=== PATIENT | male | born 1960 | race Caucasian/White ===

== ENCOUNTER 2018-11-18 18:15 | Emergency (ER) | payer OTHER ==
[~2018-11-18] VITALS: Ht 177.8 cm; Wt 95.3 kg
[2018-11-18 18:24] VITALS: BP 188/111
[2018-11-18] MEDS ORDERED: ACETAMINOPHEN EXTRA STRENGTH 500 MG TAB PO ONE (19:50)
[2018-11-18] MEDS ORDERED: hydrALAZINE 20 MG/ML VIAL IVP ONE ×2 (20:10→21:55)
[2018-11-18] MEDS ORDERED: ENALAPRILAT 2.5 MG/2 ML VIAL IVP ONE (20:10)
[2018-11-18 23:09] VITALS: BP 135/60
== END 2018-11-18 23:07 | disposition home or self-care (01) ==
LOC: MED 18:15
DX: S05.01XA Injury of conjunctiva and corneal abrasion without foreign body, right eye, initial encounter (principal); I10 Essential (primary) hypertension; E11.9 Type 2 diabetes mellitus without complications; W22.8XXA Striking against or struck by other objects, initial encounter; Y93.89 Activity, other specified; Y92.89 Other specified places as the place of occurrence of the external cause; Y99.8 Other external cause status
CPT/HCPCS: 70450; 70480; 96374; 96375; 99284; J0360; J3490; 96376

== ENCOUNTER 2019-03-01 12:12 | Emergency (ER) | payer SELFPAY ==
[~2019-03-01] VITALS: Ht 175.3 cm; Wt 87.7 kg
[2019-03-01 12:33] VITALS: BP 178/108
--- NOTE | 2019-03-01 12:38 | NUR ---
AMBULATES BACK TO THE LOBBY
--- NOTE | 2019-03-01 13:13 | NUR ---
BIB AND DAUGHTER C/O RT EYE PAIN, BLURRY VISSION WHEN WAKING UP THIS MORNING. RT RED SCLERA NOTED. WAS SEEN AND TX ON 11/18/18 FOR EYE INJURY AT WORK WHEN A BOX OF APPLE HIT HIS RT EYE.PT AWAKE, ALERT, AMBULATORY WITH STEADY GAIT. INTACT EOM,REDNESS OF SCLERA.NO DISCHARGE. DID NOT FOLLOW UP D/T NO INSURANCE HX: HTN, DM, HIGH CHOLESTEROL
[2019-03-01 14:36] VITALS: BP 160/99
--- NOTE | 2019-03-01 14:38 | NUR ---
Patient discharged with v/s stable. Written and verbal after care instructions given and explained. Patient verbalized understanding. Ambulatory with steady gait. All questions addressed prior to discharge. Advised to follow up with PMD.
== END 2019-03-01 14:38 | disposition home or self-care (01) ==
LOC: MED 12:12
DX: H11.31 Conjunctival hemorrhage, right eye (principal); I10 Essential (primary) hypertension; E11.9 Type 2 diabetes mellitus without complications; E78.00 Pure hypercholesterolemia, unspecified
CPT/HCPCS: 99283; 99285

== ENCOUNTER 2022-07-30 18:43 | Emergency (ER) | payer MEDICAID, OTHER ==
[~2022-07-30] VITALS: Ht 172.7 cm; Wt 91.6 kg
[2022-07-30 18:52] VITALS: BP 201/106
--- NOTE | 2022-07-30 18:57 | NUR ---
PT AMBULATED TO BED 04 WITH FAMILY
[2022-07-30] MEDS ORDERED: CEPH-588 PO (19:12)
--- NOTE | 2022-07-30 19:30 | NUR ---
PT BIB DAUGHTER WITH C/O EYE PAIN X2 DAYS. PT PRESENTS WITH STYE ON R EYE AND SWELLING OF R UPPER CHEEK. PT STATES 6/10 PAIN. HX STYE 2 MONTHS AGO. PMHX HTN, DM, AND ESRD. DIALYSIS M, W, F. PT IS AAOX4, NAD, VSS, BREATHING EVEN AND UNLABORED.
[2022-07-30 19:48] VITALS: BP 148/79
== END 2022-07-30 19:49 | disposition home or self-care (01) ==
LOC: MED 18:43
DX: H00.011 Hordeolum externum right upper eyelid (principal); E11.9 Type 2 diabetes mellitus without complications; I10 Essential (primary) hypertension; Z98.890 Other specified postprocedural states
CPT/HCPCS: 99281

== ENCOUNTER 2023-01-03 15:14 | Inpatient (IN) | payer OTHER ==
[2023-01-03] VITALS (12 sets, daily range): BP systolic 158–245; BP diastolic 83–108; PULSE 78–110; RESP 12–32; TEMP 98.2–98.4; O2SAT 88–100
[~2023-01-03] VITALS: Ht 170.2 cm; Wt 88.0 kg
[~2023-01-03 15:14] MED LIST: CEPH-588 PO
[2023-01-03] MEDS ORDERED: MORPHINE SULFATE 4 MG/ML SYR IVP ONE (15:35)
[2023-01-03] MEDS ORDERED: hydrALAZINE 20 MG/ML VIAL IVP ONE (15:35)
[2023-01-03] MEDS ORDERED: hydrALAZINE 20 MG/ML VIAL IM ONE (16:10)
[2023-01-03] MEDS ORDERED: NITROGLYCERIN 50 MG/D5W PREMIX 250 ML IV ONE ×2 (16:15→23:53)
[2023-01-03 16:25] LABS: BASOPHILS # (AUTO) 0.1 K/uL (0.00-0.22); BASOPHILS % (AUTO) 1.3 % (0.0-2.0); EOSINOPHILS # (AUTO) 0.4 K/uL (0-0.4); EOSINOPHILS % (AUTO) 3.7 % (0.0-4.0); HEMATOCRIT 28.2 % (36-52); HEMOGLOBIN 9.4 g/dL (12.0-18.0); LYMPHOCYTES # (AUTO) 2.2 K/uL (2.0-11.5); MEAN CORPUSCULAR HEMOGLOBIN 31 pg (27-31); MEAN CORPUSCULAR HGB CONC 33 g/dL (33-37); MEAN CORPUSCULAR VOLUME 93.4 fL (80-94); MONOCYTES # (AUTO) 0.9 K/uL (0.8-1.0); MONOCYTES % (AUTO) 7.8 % (1.7-9.3); NEUTROPHILS % (AUTO) 68.2 % (42.2-75.2); PLATELET COUNT (AUTO) 285 K/uL (140-450); RED BLOOD CELL COUNT(AUTO) 3.02 MIL/uL (4.20-6.10); WHITE BLOOD COUNT (AUTO) 11.8 K/uL (4.8-10.8)
[2023-01-03 16:41] LABS: ALANINE AMINOTRANSFERASE 80 U/L (12-78); ALBUMIN 3.4 g/dL (3.4-5.0); ALKALINE PHOSPHATASE 124 U/L (50-136); ANION GAP 12.1 (8-16); ASPARTATE AMINOTRANSFERASE 33 U/L (15-37); CALCIUM 8.2 mg/dL (8.5-10.1); CARBON DIOXIDE 31.5 mmol/L (21-32); CHLORIDE 102 mmol/L (98-107); GFR ARICAN-AMERICAN 10 mL/min (>90); GFR NON ARICAN-AMERICAN 8 mL/min (>90); GLUCOSE 99 mg/dL (74-106); LIPASE 21 U/L (16-77); POTASSIUM 5.6 mmol/L (3.5-5.1); SODIUM SERUM 140 mmol/L (136-145); TOTAL BILIRUBIN 0.4 mg/dL (0.0-1.0); TOTAL PROTEIN, SERUM 6.7 g/dL (6.4-8.2); UREA NITROGEN, BLOOD 29 mg/dL (7-18)
[2023-01-03 16:43] LABS: CREATININE 7.4 mg/dL (0.6-1.3)
[2023-01-03] MEDS ORDERED: ONDANSETRON 4 MG/2 ML VIAL IM ONE (17:05)
[2023-01-03 17:14] LABS: BLOOD GAS PH 7.377 (7.35-7.45)
[2023-01-03 17:15] LABS: BLOOD GAS BASE EXCESS 4.7 mmol/L (-2.0-2.0); BLOOD GAS HCO3 30.8 mmol/L (22-26); BLOOD GAS PCO2 53.6 mmHg (35-45)
[2023-01-03] MEDS ORDERED: HYDROcodone/APAP 5/325 MG 1 TAB TAB PO PRN (19:00)
[2023-01-03] MEDS ORDERED: ACETAMINOPHEN 325 MG TAB PO PRN (19:00)
[2023-01-03] MEDS ORDERED: MORPHINE SULFATE 2 MG/ML SYR IVP PRN (19:00)
[2023-01-03] MEDS ORDERED: NIFEdipine 30 MG TABER PO SCH (19:10)
[2023-01-03] MEDS ORDERED: DEXTROSE 50% 50 ML SYR IVP PRN (19:15)
[2023-01-03 20:21] LABS: BLOOD GAS BASE EXCESS 1.1 mmol/L (-2.0-2.0); BLOOD GAS HCO3 25.5 mmol/L (22-26); BLOOD GAS PCO2 39.6 mmHg (35-45); BLOOD GAS PH 7.427 (7.35-7.45); BLOOD GAS PO2 147.8 mmHg (75-100)
[2023-01-03] MEDS: BLOOD GLUCOSE MONITORING 1 DEV DEV FS SCH (21:33)
[2023-01-03] MEDS: INSULIN LISPRO SLIDING SCALE 100 UNITS/ML VIAL SUBQ PRN (21:36)
[2023-01-03] MEDS ORDERED: NITROGLYCERIN 50 MG/D5W PREMIX 250 ML IV PRN (23:50)
[2023-01-04] VITALS (30 sets, daily range): BP systolic 124–175; BP diastolic 50–84; PULSE 69–86; RESP 10–22; TEMP 97.5–99.3; O2SAT 95–100
[2023-01-04 05:41] LABS: BASOPHILS # (AUTO) 0.1 K/uL (0.00-0.22); BASOPHILS % (AUTO) 1.3 % (0.0-2.0); EOSINOPHILS # (AUTO) 0.2 K/uL (0-0.4); EOSINOPHILS % (AUTO) 2.4 % (0.0-4.0); HEMATOCRIT 23.5 % (36-52); HEMOGLOBIN 7.9 g/dL (12.0-18.0); LYMPHOCYTES # (AUTO) 1.1 K/uL (2.0-11.5); LYMPHOCYTES % (AUTO) 11.8 % (20.5-51.1); MEAN CORPUSCULAR HEMOGLOBIN 31 pg (27-31); MEAN CORPUSCULAR HGB CONC 34 g/dL (33-37); MEAN CORPUSCULAR VOLUME 92.4 fL (80-94); MONOCYTES # (AUTO) 0.8 K/uL (0.8-1.0); MONOCYTES % (AUTO) 8.7 % (1.7-9.3); NEUTROPHILS # (AUTO) 7.1 K/uL (1.8-7.7); NEUTROPHILS % (AUTO) 75.8 % (42.2-75.2); PLATELET COUNT (AUTO) 244 K/uL (140-450); RED BLOOD CELL COUNT(AUTO) 2.54 MIL/uL (4.20-6.10); RED CELL DISTRIBUTION WIDTH 15.3 % (11.6-13.7); WHITE BLOOD COUNT (AUTO) 9.4 K/uL (4.8-10.8)
[2023-01-04 06:01] LABS: ALBUMIN 2.8 g/dL (3.4-5.0); ANION GAP 8.8 (8-16); CARBON DIOXIDE 32.9 mmol/L (21-32); MAGNESIUM 1.8 mg/dL (1.8-2.4); PHOSPHORUS 2.9 mg/dL (2.5-4.9); POTASSIUM 3.7 mmol/L (3.5-5.1); TOTAL BILIRUBIN 0.6 mg/dL (0.0-1.0); TOTAL PROTEIN, SERUM 5.6 g/dL (6.4-8.2)
[2023-01-04 06:05] LABS: CREATININE 4.8 mg/dL (0.6-1.3)
[2023-01-04] MEDS: BLOOD GLUCOSE MONITORING 1 DEV DEV FS SCH ×4 (06:53→21:20)
[2023-01-04] MEDS: PANTOPRAZOLE 40 MG INJ VIAL IVP SCH (08:28)
[2023-01-04] MEDS ORDERED: NIFEdipine 60 MG TABER PO SCH (09:00)
[2023-01-05] VITALS (16 sets, daily range): BP systolic 133–196; BP diastolic 65–86; PULSE 66–87; RESP 14–19; TEMP 98.2–98.7; O2SAT 94–100
[2023-01-05 05:37] LABS: BASOPHILS # (AUTO) 0.1 K/uL (0.00-0.22); BASOPHILS % (AUTO) 1.3 % (0.0-2.0); EOSINOPHILS # (AUTO) 0.4 K/uL (0-0.4); HEMATOCRIT 23.2 % (36-52); HEMOGLOBIN 7.7 g/dL (12.0-18.0); LYMPHOCYTES # (AUTO) 1.6 K/uL (2.0-11.5); LYMPHOCYTES % (AUTO) 21.7 % (20.5-51.1); MEAN CORPUSCULAR HEMOGLOBIN 31 pg (27-31); MEAN CORPUSCULAR HGB CONC 33 g/dL (33-37); MEAN CORPUSCULAR VOLUME 92.1 fL (80-94); MONOCYTES # (AUTO) 0.9 K/uL (0.8-1.0); MONOCYTES % (AUTO) 11.9 % (1.7-9.3); NEUTROPHILS # (AUTO) 4.4 K/uL (1.8-7.7); NEUTROPHILS % (AUTO) 60.1 % (42.2-75.2); PLATELET COUNT (AUTO) 230 K/uL (140-450); RED BLOOD CELL COUNT(AUTO) 2.52 MIL/uL (4.20-6.10); RED CELL DISTRIBUTION WIDTH 15.6 % (11.6-13.7); WHITE BLOOD COUNT (AUTO) 7.3 K/uL (4.8-10.8)
[2023-01-05] MEDS: hydrALAZINE 20 MG/ML VIAL IVP PRN ×2 (06:16→14:58)
[2023-01-05 06:35] LABS: ALBUMIN 2.7 g/dL (3.4-5.0); CALCIUM 8.2 mg/dL (8.5-10.1); CARBON DIOXIDE 34.2 mmol/L (21-32); MAGNESIUM 2.1 mg/dL (1.8-2.4); PHOSPHORUS 3.6 mg/dL (2.5-4.9); POTASSIUM 5.2 mmol/L (3.5-5.1); TOTAL BILIRUBIN 0.4 mg/dL (0.0-1.0); TOTAL PROTEIN, SERUM 5.4 g/dL (6.4-8.2)
[2023-01-05] MEDS: BLOOD GLUCOSE MONITORING 1 DEV DEV FS SCH ×4 (08:05→20:24)
[2023-01-05] MEDS: PANTOPRAZOLE 40 MG INJ VIAL IVP SCH (08:38)
[2023-01-05] MEDS: NIFEdipine 30 MG TABER PO SCH (08:38)
[2023-01-05] MEDS ORDERED: VALSARTAN 80 MG TAB PO SCH (09:00)
[2023-01-05] MEDS: VALSARTAN 80 MG TAB PO SCH ×2 (14:57→20:17)
[2023-01-05 15:06] LABS: HEPATITIS A ANTIBODY IGM Negative (Negative); HEPATITIS B CORE AB TOTAL Negative (Negative); HEPATITIS B CORE, IGM Negative (Negative); HEPATITIS B SURFACE ANTIBODY Reactive (.); HEPATITIS B SURFACE ANTIGEN Negative (Negative); HEPATITIS C VIRUS ANTIBODY Non Reactive (Non Reactive)
[2023-01-05] MEDS: INSULIN LISPRO SLIDING SCALE 100 UNITS/ML VIAL SUBQ PRN (20:23)
[2023-01-05 21:54] LABS: HEPATITIS A ANTIBODY TOTAL Positive (Negative)
[2023-01-06] VITALS (13 sets, daily range): BP systolic 159–197; BP diastolic 67–87; PULSE 72–88; RESP 18–20; TEMP 97–98.6; O2SAT 93–98
[2023-01-06] MEDS: hydrALAZINE 20 MG/ML VIAL IVP PRN ×3 (01:59→14:11)
[2023-01-06 07:01] LABS: BASOPHILS # (AUTO) 0.1 K/uL (0.00-0.22); BASOPHILS % (AUTO) 1.5 % (0.0-2.0); EOSINOPHILS # (AUTO) 0.4 K/uL (0-0.4); EOSINOPHILS % (AUTO) 5.2 % (0.0-4.0); HEMATOCRIT 26.2 % (36-52); HEMOGLOBIN 8.8 g/dL (12.0-18.0); LYMPHOCYTES # (AUTO) 1.3 K/uL (2.0-11.5); LYMPHOCYTES % (AUTO) 16.9 % (20.5-51.1); MEAN CORPUSCULAR HEMOGLOBIN 31 pg (27-31); MEAN CORPUSCULAR HGB CONC 34 g/dL (33-37); MEAN CORPUSCULAR VOLUME 92.6 fL (80-94); MONOCYTES # (AUTO) 0.9 K/uL (0.8-1.0); MONOCYTES % (AUTO) 11.2 % (1.7-9.3); NEUTROPHILS # (AUTO) 5.1 K/uL (1.8-7.7); NEUTROPHILS % (AUTO) 65.2 % (42.2-75.2); PLATELET COUNT (AUTO) 266 K/uL (140-450); RED BLOOD CELL COUNT(AUTO) 2.83 MIL/uL (4.20-6.10); RED CELL DISTRIBUTION WIDTH 15.5 % (11.6-13.7); WHITE BLOOD COUNT (AUTO) 7.9 K/uL (4.8-10.8)
[2023-01-06] MEDS: BLOOD GLUCOSE MONITORING 1 DEV DEV FS SCH ×3 (07:11→15:24)
[2023-01-06 07:49] LABS: ALBUMIN 2.7 g/dL (3.4-5.0); ANION GAP 13.5 (8-16); CARBON DIOXIDE 30.4 mmol/L (21-32); MAGNESIUM 1.9 mg/dL (1.8-2.4); PHOSPHORUS 3.5 mg/dL (2.5-4.9); POTASSIUM 4.9 mmol/L (3.5-5.1); TOTAL BILIRUBIN 0.4 mg/dL (0.0-1.0); TOTAL PROTEIN, SERUM 5.9 g/dL (6.4-8.2)
[2023-01-06] MEDS: PANTOPRAZOLE 40 MG INJ VIAL IVP SCH (08:37)
[2023-01-06] MEDS: NIFEdipine 30 MG TABER PO SCH (08:38)
[2023-01-06] MEDS: VALSARTAN 80 MG TAB PO SCH (08:38)
[2023-01-06] MEDS ORDERED: EPOETIN ALFA 10,000 UNITS/ML VIAL IV SCH (09:00)
[2023-01-06] MEDS: hydrALAZINE 25 MG TAB PO SCH ×2 (12:38→16:05)
[2023-01-06] MEDS ORDERED: PANT40EC PO (13:23)
[2023-01-06] MEDS ORDERED: NIFE30TA36 PO (13:23)
[2023-01-06] MEDS ORDERED: VALS80TA2 PO (13:23)
== END 2023-01-06 16:53 | disposition home or self-care (01) | DRG 133 ==
LOC: MED 15:14 → MTU 19:05 → MIC 22:00 → MTU 01-05 08:57
PROVIDERS: ADMIT Student in an Organized Health Care Education/Training Program; ATTEND Student in an Organized Health Care Education/Training Program
PROC: 5A09357 Assistance with Respiratory Ventilation, Less than 24 Consecutive Hours, Continuous Positive Airway Pressure (ICD-10-PCS; 2023-01-03)
PROC: 5A1D70Z Performance of Urinary Filtration, Intermittent, Less than 6 Hours Per Day (ICD-10-PCS; principal; 2023-01-04)
PROC: 5A1D70Z Performance of Urinary Filtration, Intermittent, Less than 6 Hours Per Day (ICD-10-PCS; 2023-01-05)
DX: J96.01 Acute respiratory failure with hypoxia (principal); I13.2 Hypertensive heart and chronic kidney disease with heart failure and with stage 5 chronic kidney disease, or end stage renal disease; N18.6 End stage renal disease; R65.10 Systemic inflammatory response syndrome (SIRS) of non-infectious origin without acute organ dysfunction; D63.1 Anemia in chronic kidney disease; E11.22 Type 2 diabetes mellitus with diabetic chronic kidney disease; E86.1 Hypovolemia; I50.9 Heart failure, unspecified; I25.10 Atherosclerotic heart disease of native coronary artery without angina pectoris; I16.1 Hypertensive emergency; Z99.2 Dependence on renal dialysis
CPT/HCPCS: 36415; 36600; 71045; 71250; 76705; 80053; 82803; 82948; 83036; 83690; 83735; 83880; 84100; 84484; 85025; 86704; 86706; 86708; 86709; 86803; 87081; 87340; 93005; 93970; 96372; 96374; 96375; 99291; 99292; C9113; J0360; J0885; J1644; J1815; J2270; J2405; J3490; Q0092

== ENCOUNTER 2023-03-28 18:36 | Inpatient (IN) | payer OTHER ==
[2023-03-28] VITALS (8 sets, daily range): BP systolic 174–191; BP diastolic 77–104; PULSE 93–114; RESP 20–24; TEMP 100.2; O2SAT 78–100
[~2023-03-28] VITALS: Ht 172.7 cm; Wt 90.7 kg
[~2023-03-28 18:36] MED LIST changes: -CEPH-588 PO; +NIFE30TA36 PO; +PANT40EC PO; +VALS80TA2 PO
[2023-03-28] MEDS ORDERED: ALBUTEROL SULFATE/IPRATROPIU 3 ML SOL IH ONE (18:55)
[2023-03-28] MEDS ORDERED: ALBUTEROL 0.083% 2.5 MG/3 ML NEBU INH ONE ×2 (18:59→19:57)
[2023-03-28] MEDS ORDERED: IPRATROPIUM 0.02% 0.5 MG/2.5 ML NEBU INH ONE (18:59)
[2023-03-28 19:25] LABS: BASOPHILS # (AUTO) 0.1 K/uL (0.00-0.22); BASOPHILS % (AUTO) 0.8 % (0.0-2.0); EOSINOPHILS # (AUTO) 0.3 K/uL (0-0.4); EOSINOPHILS % (AUTO) 2.2 % (0.0-4.0); HEMATOCRIT 28.3 % (36-52); HEMOGLOBIN 9.6 g/dL (12.0-18.0); LYMPHOCYTES # (AUTO) 0.8 K/uL (2.0-11.5); LYMPHOCYTES % (AUTO) 6.6 % (20.5-51.1); MEAN CORPUSCULAR HEMOGLOBIN 31 pg (27-31); MEAN CORPUSCULAR HGB CONC 34 g/dL (33-37); MEAN CORPUSCULAR VOLUME 92.9 fL (80-94); MONOCYTES # (AUTO) 0.6 K/uL (0.8-1.0); NEUTROPHILS # (AUTO) 10.6 K/uL (1.8-7.7); NEUTROPHILS % (AUTO) 85.4 % (42.2-75.2); PLATELET COUNT (AUTO) 288 K/uL (140-450); RED BLOOD CELL COUNT(AUTO) 3.05 MIL/uL (4.20-6.10); RED CELL DISTRIBUTION WIDTH 15.9 % (11.6-13.7); WHITE BLOOD COUNT (AUTO) 12.4 K/uL (4.8-10.8)
[2023-03-28 19:36] LABS: CARBON DIOXIDE 30.6 mmol/L (21-32)
[2023-03-28 19:38] LABS: INR 1.09 (0.8-1.2); PARTIAL THROMBOPLASTIN TIME 27.1 secs (22-35.6); PROTHROMBIN TIME 11.4 secs (10.8-13.4)
[2023-03-28 19:41] LABS: CREATININE 6.8 mg/dL (0.6-1.3); POTASSIUM 6.6 mmol/L (3.5-5.1)
[2023-03-28 19:43] LABS: ALANINE AMINOTRANSFERASE 26 U/L (12-78); ALBUMIN 3.2 g/dL (3.4-5.0); ALKALINE PHOSPHATASE 113 U/L (50-136); ASPARTATE AMINOTRANSFERASE 15 U/L (15-37); BILIRUBIN,DIRECT 0.1 mg/dL (0.0-0.3); CREATINE KINASE, TOTAL 124 U/L (39-308); TOTAL BILIRUBIN 0.4 mg/dL (0.0-1.0); TOTAL PROTEIN, SERUM 7.7 g/dL (6.4-8.2)
[2023-03-28] MEDS ORDERED: INSULIN REGULAR, HUMAN 100 UNIT/ML VIAL SUBQ ONE (19:50)
[2023-03-28] MEDS: IPRATROPIUM 0.02% 0.5 MG/2.5 ML NEBU INH ONE (20:29)
[2023-03-28] MEDS: ALBUTEROL 0.083% 2.5 MG/3 ML NEBU INH ONE ×2 (20:29)
[2023-03-28] MEDS ORDERED: CALCIUM GLUC 1 GM/50 mL NS BAG 50 ML IV ONE (20:53)
[2023-03-28] MEDS: CALCIUM GLUCONATE 10% 1,000 MG in NACL 0.9% 50 ML IV ONE (21:00)
[2023-03-28] MEDS ORDERED: DEXTROSE 50% 50 ML SYR IVP ONE (21:32)
[2023-03-28] MEDS: DEXTROSE 50% 50 ML SYR IVP ONE (21:50)
[2023-03-28] MEDS: INSULIN REGULAR, HUMAN 100 UNIT/ML VIAL IV ONE (21:55)
[2023-03-28] MEDS ORDERED: VANCOMYCIN 1,000 MG VIAL ONE (22:00)
[2023-03-28] MEDS ORDERED: MORPHINE SULFATE 2 MG/ML SYR IVP PRN (22:00)
[2023-03-28] MEDS ORDERED: LORazepam 2 MG/ML VIAL IVP PRN (22:00)
[2023-03-28] MEDS ORDERED: ONDANSETRON 4 MG/2 ML VIAL IVP PRN (22:00)
[2023-03-28] MEDS ORDERED: ALBUTEROL 0.083% 2.5 MG/3 ML NEBU INH PRN (22:00)
[2023-03-28] MEDS ORDERED: HYDROcodone/APAP 5/325 MG 1 TAB TAB PO PRN (22:00)
[2023-03-28] MEDS ORDERED: CEFEPIME 2,000 MG VIAL IV ONE (22:04)
[2023-03-28] MEDS: CEFEPIME 2,000 MG in DEXTROSE 5% 100 ML IV ONE (22:13)
[2023-03-28 22:39] LABS: FLU A ANTIGEN negative (NEGATIVE); FLU B ANTIGEN NEGATIVE (NEGATIVE)
[2023-03-28] MEDS: VANCOMYCIN 1,000 MG in DEXTROSE 5% 250 ML IV ONE (23:30)
[2023-03-29] VITALS (12 sets, daily range): BP systolic 142–153; BP diastolic 62–65; PULSE 80–96; RESP 18–23; TEMP 97.6–98.9; O2SAT 94–100
[2023-03-29] MEDS ORDERED: AZITHROMYCIN 500 MG INJ VIAL IV ONE (01:26)
[2023-03-29] MEDS: AZITHROMYCIN 500 MG in DEXTROSE 5% 250 ML IV SCH ×2 (01:40→21:11)
[2023-03-29] MEDS: hydrALAZINE 20 MG/ML VIAL IVP PRN (02:57)
[2023-03-29] MEDS ORDERED: CLONIDINE HYDROCHLORIDE 0.1 MG TAB ONE (05:17)
[2023-03-29] MEDS: CLONIDINE HYDROCHLORIDE 0.1 MG TAB PO SCH (05:30)
[2023-03-29] MEDS: LORazepam 1 MG TAB PO PRN (06:15)
[2023-03-29] MEDS: NITROGLYCERIN 2% 1 GM PKT TP SCH (06:15)
[2023-03-29 07:35] LABS: BASOPHILS # (AUTO) 0.1 K/uL (0.00-0.22); BASOPHILS % (AUTO) 0.6 % (0.0-2.0); EOSINOPHILS % (AUTO) 0.1 % (0.0-4.0); HEMATOCRIT 27.7 % (36-52); HEMOGLOBIN 9.2 g/dL (12.0-18.0); LYMPHOCYTES # (AUTO) 0.8 K/uL (2.0-11.5); LYMPHOCYTES % (AUTO) 5.5 % (20.5-51.1); MEAN CORPUSCULAR HEMOGLOBIN 31 pg (27-31); MEAN CORPUSCULAR HGB CONC 33 g/dL (33-37); MONOCYTES # (AUTO) 0.7 K/uL (0.8-1.0); MONOCYTES % (AUTO) 4.7 % (1.7-9.3); NEUTROPHILS # (AUTO) 12.9 K/uL (1.8-7.7); NEUTROPHILS % (AUTO) 89.1 % (42.2-75.2); PLATELET COUNT (AUTO) 269 K/uL (140-450); RED BLOOD CELL COUNT(AUTO) 2.98 MIL/uL (4.20-6.10); WHITE BLOOD COUNT (AUTO) 14.5 K/uL (4.8-10.8)
[2023-03-29 09:38] LABS: ALBUMIN 2.8 g/dL (3.4-5.0); ANION GAP 15.3 (8-16); CALCIUM 8.6 mg/dL (8.5-10.1); CARBON DIOXIDE 30.3 mmol/L (21-32); TOTAL BILIRUBIN 0.4 mg/dL (0.0-1.0); TOTAL PROTEIN, SERUM 6.9 g/dL (6.4-8.2)
[2023-03-29 09:44] LABS: CREATININE 8.1 mg/dL (0.6-1.3); POTASSIUM 7.6 mmol/L (3.5-5.1)
[2023-03-29] MEDS: NIFEdipine 90 MG TABER PO SCH (11:10)
[2023-03-29] MEDS: CALCIUM GLUCONATE 10% 1,000 MG in NACL 0.9% 50 ML IV SCH (11:30)
[2023-03-29] MEDS: EPOETIN ALFA-EPBX 10,000 UNITS/ML VIAL IV SCH (16:12)
[2023-03-29] MEDS ORDERED: DEXTROSE 50% 50 ML SYR IVP PRN (19:55)
[2023-03-29] MEDS: BLOOD GLUCOSE MONITORING 1 DEV DEV FS SCH (21:22)
[2023-03-30] VITALS (7 sets, daily range): BP systolic 150–152; BP diastolic 73; PULSE 73–96; RESP 18–20; TEMP 97.6–98.6; O2SAT 95–98
[2023-03-30 05:30] LABS: APPEARANCE,URINE CLEAR (CLEAR); BILIRUBIN,URINE NEGATIVE (NEGATIVE); BLOOD, URINE TRACE-L (NEGATIVE); COLOR,URINE YELLOW (YELLOW); LEUKOCYTE ESTERASE ,URINE NEGATIVE (NEGATIVE); NITRITE, URINE NEGATIVE (NEGATIVE); PH,URINE 8.5 (5.0-9.0); PROTEIN,URINE 3+ (NEGATIVE); UGLUCOSE TRACE (NEGATIVE); UROBILINOGEN,URINE 0.2 EU/dL (0.2 - 1)
[2023-03-30 05:35] LABS: BACTERIA,URINE 10-30 (MOD) /HPF (None Seen); MUCUS,URINE 1+ /LPF (None Seen); RBC,URINE 0-5 /HPF (0-5); SQUAMOUS EPITHELIAL CELL,UR 0-3 (FEW) /LPF (0-3 (FEW)); WBC,URINE 0-5 /HPF (0-5)
[2023-03-30 10:50] LABS: ANION GAP 10.2 (8-16); BASOPHILS # (AUTO) 0.1 K/uL (0.00-0.22); BASOPHILS % (AUTO) 1.3 % (0.0-2.0); CALCIUM 8.5 mg/dL (8.5-10.1); CARBON DIOXIDE 31.6 mmol/L (21-32); EOSINOPHILS # (AUTO) 0.5 K/uL (0-0.4); HEMATOCRIT 24.7 % (36-52); HEMOGLOBIN 8.3 g/dL (12.0-18.0); LYMPHOCYTES # (AUTO) 1.1 K/uL (2.0-11.5); LYMPHOCYTES % (AUTO) 11.4 % (20.5-51.1); MEAN CORPUSCULAR HEMOGLOBIN 31 pg (27-31); MEAN CORPUSCULAR HGB CONC 34 g/dL (33-37); MEAN CORPUSCULAR VOLUME 92.8 fL (80-94); MONOCYTES # (AUTO) 0.8 K/uL (0.8-1.0); MONOCYTES % (AUTO) 8.2 % (1.7-9.3); NEUTROPHILS # (AUTO) 6.8 K/uL (1.8-7.7); NEUTROPHILS % (AUTO) 74.1 % (42.2-75.2); PLATELET COUNT (AUTO) 234 K/uL (140-450); POTASSIUM 5.8 mmol/L (3.5-5.1); RED BLOOD CELL COUNT(AUTO) 2.66 MIL/uL (4.20-6.10); RED CELL DISTRIBUTION WIDTH 15.8 % (11.6-13.7); WHITE BLOOD COUNT (AUTO) 9.2 K/uL (4.8-10.8)
[2023-03-30 10:53] LABS: CREATININE 7.1 mg/dL (0.6-1.3)
[2023-03-30] MEDS: INSULIN LISPRO SLIDING SCALE 100 UNITS/ML VIAL SUBQ PRN (11:52)
[2023-03-30] MEDS: ACETAMINOPHEN 325 MG TAB PO PRN (21:30)
[2023-03-31] VITALS (9 sets, daily range): BP systolic 138–188; BP diastolic 57–80; PULSE 68–84; RESP 18–19; TEMP 97.5–98; O2SAT 94–99
[2023-03-31 09:33] LABS: BASOPHILS # (AUTO) 0.1 K/uL (0.00-0.22); BASOPHILS % (AUTO) 1.2 % (0.0-2.0); EOSINOPHILS # (AUTO) 0.8 K/uL (0-0.4); EOSINOPHILS % (AUTO) 9.8 % (0.0-4.0); HEMATOCRIT 28.6 % (36-52); HEMOGLOBIN 9.7 g/dL (12.0-18.0); LYMPHOCYTES # (AUTO) 1.3 K/uL (2.0-11.5); LYMPHOCYTES % (AUTO) 15.1 % (20.5-51.1); MEAN CORPUSCULAR HEMOGLOBIN 31 pg (27-31); MEAN CORPUSCULAR HGB CONC 34 g/dL (33-37); MEAN CORPUSCULAR VOLUME 92.1 fL (80-94); MONOCYTES # (AUTO) 0.7 K/uL (0.8-1.0); MONOCYTES % (AUTO) 8.5 % (1.7-9.3); NEUTROPHILS # (AUTO) 5.5 K/uL (1.8-7.7); NEUTROPHILS % (AUTO) 65.4 % (42.2-75.2); PLATELET COUNT (AUTO) 286 K/uL (140-450); RED CELL DISTRIBUTION WIDTH 15.3 % (11.6-13.7); WHITE BLOOD COUNT (AUTO) 8.3 K/uL (4.8-10.8)
[2023-03-31 09:46] LABS: ALBUMIN 2.7 g/dL (3.4-5.0); ANION GAP 12.1 (8-16); CALCIUM 8.6 mg/dL (8.5-10.1); CARBON DIOXIDE 30.8 mmol/L (21-32); POTASSIUM 4.9 mmol/L (3.5-5.1); TOTAL BILIRUBIN 0.4 mg/dL (0.0-1.0); TOTAL PROTEIN, SERUM 7.1 g/dL (6.4-8.2)
[2023-03-31 09:51] LABS: CREATININE 6.2 mg/dL (0.6-1.3)
[2023-04-01] VITALS (8 sets, daily range): BP systolic 139–211; BP diastolic 62–88; PULSE 69–75; RESP 18; TEMP 97.3–98.8; O2SAT 95–100
[2023-04-01] MEDS: CLONIDINE HYDROCHLORIDE 0.1 MG TAB PO SCH (12:49)
[2023-04-01] MEDS: hydrALAZINE 10 MG TAB PO SCH (12:51)
[2023-04-02 04:00] VITALS: BP 122/55; PULSE 65; RESP 18; TEMP 97.2; O2SAT 96
[2023-04-02 07:43] VITALS: O2SAT 100
[2023-04-02 08:00] VITALS: PULSE 69; RESP 17; RESP 18; O2SAT 99
[2023-04-02 14:07] VITALS: BP 150/67; PULSE 70
[2023-04-02] MEDS ORDERED: APR10 PO (14:14)
[2023-04-02] MEDS ORDERED: CLON-1170 PO (14:14)
== END 2023-04-02 17:45 | disposition home or self-care (01) | DRG 720 ==
LOC: MED 18:36 → MMU 22:01 → MTU 03-29 05:48
PROVIDERS: ADMIT Student in an Organized Health Care Education/Training Program; ATTEND Student in an Organized Health Care Education/Training Program
PROC: 5A0935A Assistance with Respiratory Ventilation, Less than 24 Consecutive Hours, High Flow/Velocity Cannula (ICD-10-PCS; principal; 2023-03-28)
PROC: 5A0935A Assistance with Respiratory Ventilation, Less than 24 Consecutive Hours, High Flow/Velocity Cannula (ICD-10-PCS; 2023-03-29)
PROC: 5A1D70Z Performance of Urinary Filtration, Intermittent, Less than 6 Hours Per Day (ICD-10-PCS; 2023-03-29)
PROC: 5A0935A Assistance with Respiratory Ventilation, Less than 24 Consecutive Hours, High Flow/Velocity Cannula (ICD-10-PCS; 2023-03-30)
PROC: 5A1D70Z Performance of Urinary Filtration, Intermittent, Less than 6 Hours Per Day (ICD-10-PCS; 2023-03-30)
PROC: 5A0935A Assistance with Respiratory Ventilation, Less than 24 Consecutive Hours, High Flow/Velocity Cannula (ICD-10-PCS; 2023-03-31)
PROC: 5A1D70Z Performance of Urinary Filtration, Intermittent, Less than 6 Hours Per Day (ICD-10-PCS; 2023-03-31)
DX: A41.9 Sepsis, unspecified organism (principal); J96.01 Acute respiratory failure with hypoxia; J69.0 Pneumonitis due to inhalation of food and vomit; I50.43 Acute on chronic combined systolic (congestive) and diastolic (congestive) heart failure; J18.9 Pneumonia, unspecified organism; N18.6 End stage renal disease; E44.1 Mild protein-calorie malnutrition; R64 Cachexia; J81.1 Chronic pulmonary edema; E11.22 Type 2 diabetes mellitus with diabetic chronic kidney disease; E87.5 Hyperkalemia; D64.9 Anemia, unspecified; I16.0 Hypertensive urgency; Z20.822 Contact with and (suspected) exposure to COVID-19; I13.2 Hypertensive heart and chronic kidney disease with heart failure and with stage 5 chronic kidney disease, or end stage renal disease; Z99.2 Dependence on renal dialysis; Z68.30 Body mass index [BMI] 30.0-30.9, adult
CPT/HCPCS: 36415; 71045; 80048; 80053; 80076; 81001; 82550; 82948; 83605; 83735; 83880; 84100; 84484; 85025; 85610; 85730; 87040; 87081; 87086; 93005; 94640; 96365; 96367; 96375; 99285; J0360; J0456; J0610; J0692; J0696; J1644; J1815; J3370; J7060; J7613; J7644; Q5106

== ENCOUNTER 2023-04-19 17:10 | Emergency (ER) | payer OTHER ==
[~2023-04-19] VITALS: Ht 185.4 cm; Wt 84.8 kg
[~2023-04-19 17:10] MED LIST changes: +APR10 PO; +CLON-1170 PO
[2023-04-19 17:27] VITALS: BP 204/87; PULSE 65; RESP 19; TEMP 97.2; O2SAT 98
== END 2023-04-19 22:56 | disposition left against medical advice (07) ==
LOC: MED 17:10
DX: I10 Essential (primary) hypertension (principal); Z53.21 Procedure and treatment not carried out due to patient leaving prior to being seen by health care provider
CPT/HCPCS: 99281

== ENCOUNTER 2023-05-21 18:52 | Inpatient (IN) | payer OTHER ==
[~2023-05-21] VITALS: Ht 182.9 cm; Wt 86.2 kg
[2023-05-21 19:09] VITALS: BP 171/91; PULSE 79; RESP 22; TEMP 98.8; O2SAT 77
[2023-05-21] MEDS: NITROGLYCERIN 0.4 MG TAB SL ONE (19:53)
[2023-05-21 20:51] LABS: BASOPHILS # (AUTO) 0.1 K/uL (0.00-0.22); BASOPHILS % (AUTO) 0.8 % (0.0-2.0); EOSINOPHILS # (AUTO) 0.1 K/uL (0-0.4); EOSINOPHILS % (AUTO) 0.7 % (0.0-4.0); HEMATOCRIT 29.2 % (36-52); HEMOGLOBIN 9.7 g/dL (12.0-18.0); LYMPHOCYTES # (AUTO) 0.8 K/uL (2.0-11.5); LYMPHOCYTES % (AUTO) 6.1 % (20.5-51.1); MEAN CORPUSCULAR HEMOGLOBIN 30 pg (27-31); MEAN CORPUSCULAR HGB CONC 33 g/dL (33-37); MONOCYTES # (AUTO) 0.6 K/uL (0.8-1.0); MONOCYTES % (AUTO) 4.4 % (1.7-9.3); PLATELET COUNT (AUTO) 278 K/uL (140-450); RED BLOOD CELL COUNT(AUTO) 3.22 MIL/uL (4.20-6.10); RED CELL DISTRIBUTION WIDTH 15.9 % (11.6-13.7); WHITE BLOOD COUNT (AUTO) 12.5 K/uL (4.8-10.8)
[2023-05-21 20:59] LABS: FLU A ANTIGEN negative (NEGATIVE); FLU B ANTIGEN NEGATIVE (NEGATIVE)
[2023-05-21 21:08] LABS: ANION GAP 17.6 (8-16); CALCIUM 8.8 mg/dL (8.5-10.1); CARBON DIOXIDE 26.6 mmol/L (21-32)
[2023-05-21 21:14] LABS: INR 1.08 (0.8-1.2); PARTIAL THROMBOPLASTIN TIME 21.2 secs (22-35.6); PROTHROMBIN TIME 11.3 secs (10.8-13.4)
[2023-05-21 21:18] LABS: LACTIC ACID 1.3 mmol/L (0.4-2.0)
[2023-05-21] MEDS ORDERED: CEFEPIME 1,000 MG VIAL ONE (21:28)
[2023-05-21 21:31] LABS: POTASSIUM 7.2 mmol/L (3.5-5.1)
[2023-05-21 21:32] LABS: CREATININE 9.2 mg/dL (0.6-1.3)
[2023-05-21] MEDS ORDERED: CALCIUM GLUC 1 GM/50 mL NS BAG 50 ML IV ONE (21:41)
[2023-05-21] MEDS: CEFEPIME 1,000 MG in DEXTROSE 5% 50 ML IV ONE (22:00)
[2023-05-21] MEDS ORDERED: METO50TE2 PO (22:04)
[2023-05-21] MEDS ORDERED: ATOR40TA PO (22:04)
[2023-05-21] MEDS ORDERED: SEVE800T6 PO (22:04)
[2023-05-21] MEDS ORDERED: ACET-10509 PO (22:04)
[2023-05-21] MEDS ORDERED: INSU100S22 SUBQ (22:04)
[2023-05-21] MEDS: INSULIN REGULAR, HUMAN 100 UNIT/ML VIAL SUBQ ONE (22:05)
[2023-05-21] MEDS: FUROSEMIDE 40 MG/4 ML VIAL IVP ONE (22:09)
[2023-05-21] MEDS ORDERED: ZOLPIDEM 5 MG TAB PO PRN (22:10)
[2023-05-21] MEDS ORDERED: ACETAMINOPHEN 325 MG TAB PO PRN (22:10)
[2023-05-21] MEDS ORDERED: LORazepam 1 MG TAB PO PRN (22:10)
[2023-05-21] MEDS ORDERED: ONDANSETRON 4 MG/2 ML VIAL IVP PRN (22:10)
[2023-05-21] MEDS ORDERED: HYDROcodone/APAP 5/325 MG 1 TAB TAB PO PRN (22:10)
[2023-05-21] MEDS: DEXTROSE 50% 50 ML SYR IVP ONE (22:11)
[2023-05-21] MEDS: CALCIUM GLUCONATE 10% 1,000 MG in NACL 0.9% 50 ML IV ONE (22:12)
[2023-05-21 22:27] LABS: ALANINE AMINOTRANSFERASE 54 U/L (12-78); ALBUMIN 3.7 g/dL (3.4-5.0); ALKALINE PHOSPHATASE 158 U/L (50-136); ASPARTATE AMINOTRANSFERASE 35 U/L (15-37); BILIRUBIN,DIRECT 0.2 mg/dL (0.0-0.3); CREATINE KINASE, TOTAL 98 U/L (39-308); TOTAL BILIRUBIN 0.6 mg/dL (0.0-1.0); TOTAL PROTEIN, SERUM 7.5 g/dL (6.4-8.2)
[2023-05-21] MEDS: ALBUTEROL 0.083% 2.5 MG/3 ML NEBU INH ONE (22:31)
[2023-05-21 22:32] VITALS: PULSE 74; RESP 19; O2SAT 95; O2SAT 97
[2023-05-21] MEDS: AZITHROMYCIN 500 MG in DEXTROSE 5% 250 ML IV ONE (23:00)
[2023-05-21] MEDS ORDERED: AZITHROMYCIN 500 MG INJ VIAL IV ONE (23:11)
[2023-05-22 07:47] LABS: BASOPHILS # (AUTO) 0.1 K/uL (0.00-0.22); BASOPHILS % (AUTO) 1.2 % (0.0-2.0); EOSINOPHILS # (AUTO) 0.2 K/uL (0-0.4); HEMATOCRIT 26.1 % (36-52); HEMOGLOBIN 8.7 g/dL (12.0-18.0); LYMPHOCYTES # (AUTO) 0.9 K/uL (2.0-11.5); LYMPHOCYTES % (AUTO) 10.3 % (20.5-51.1); MEAN CORPUSCULAR HEMOGLOBIN 30 pg (27-31); MEAN CORPUSCULAR HGB CONC 33 g/dL (33-37); MEAN CORPUSCULAR VOLUME 90.7 fL (80-94); MONOCYTES # (AUTO) 0.6 K/uL (0.8-1.0); MONOCYTES % (AUTO) 6.9 % (1.7-9.3); NEUTROPHILS # (AUTO) 7.2 K/uL (1.8-7.7); NEUTROPHILS % (AUTO) 79.6 % (42.2-75.2); PLATELET COUNT (AUTO) 246 K/uL (140-450); RED BLOOD CELL COUNT(AUTO) 2.88 MIL/uL (4.20-6.10); RED CELL DISTRIBUTION WIDTH 15.7 % (11.6-13.7); WHITE BLOOD COUNT (AUTO) 9.1 K/uL (4.8-10.8)
[2023-05-22 08:18] LABS: ANION GAP 12.7 (8-16); CALCIUM 8.5 mg/dL (8.5-10.1); CARBON DIOXIDE 30.5 mmol/L (21-32); POTASSIUM 5.2 mmol/L (3.5-5.1); TOTAL BILIRUBIN 0.6 mg/dL (0.0-1.0); TOTAL PROTEIN, SERUM 6.3 g/dL (6.4-8.2)
[2023-05-22 08:25] LABS: CREATININE 6.2 mg/dL (0.6-1.3)
[2023-05-22] MEDS: PANTOPRAZOLE 40 MG TABEC PO SCH (09:28)
[2023-05-22] MEDS: SEVELAMER CARBONATE 800 MG TAB PO SCH (09:28)
[2023-05-22] MEDS: NIFEdipine 30 MG TABER PO SCH (09:29)
[2023-05-22] MEDS: hydrALAZINE 10 MG TAB PO SCH (09:30)
[2023-05-22] MEDS: DOCUSATE SODIUM 100 MG GELCAP PO SCH (09:32)
[2023-05-22] MEDS: METOPROLOL SUCCINATE 50 MG TABER PO SCH (09:32)
[2023-05-22 09:51] VITALS: BP 155/64; PULSE 73; RESP 17; TEMP 98; O2SAT 99
[2023-05-22] MEDS: CLONIDINE HYDROCHLORIDE 0.1 MG TAB PO SCH (09:51)
[2023-05-22 11:34] LABS: APPEARANCE,URINE CLEAR (CLEAR); BILIRUBIN,URINE NEGATIVE (NEGATIVE); BLOOD, URINE 1+ (NEGATIVE); COLOR,URINE YELLOW (YELLOW); LEUKOCYTE ESTERASE ,URINE NEGATIVE (NEGATIVE); NITRITE, URINE NEGATIVE (NEGATIVE); PROTEIN,URINE 3+ (NEGATIVE); UGLUCOSE TRACE (NEGATIVE); UROBILINOGEN,URINE 0.2 EU/dL (0.2 - 1)
[2023-05-22 11:42] LABS: BACTERIA,URINE FEW /HPF (None Seen); RBC,URINE 0-5 /HPF (0-5); SQUAMOUS EPITHELIAL CELL,UR 0-3 (FEW) /LPF (0-3 (FEW)); WBC,URINE 0-5 /HPF (0-5)
[2023-05-22] MEDS ORDERED: ATORVASTATIN 20 MG TAB PO SCH (21:00)
[2023-05-23] MEDS ORDERED: MEDS-TO-BEDS MC SCH (21:00)
== END 2023-05-22 12:10 | disposition left against medical advice (07) | DRG 720 ==
LOC: MED 18:52 → MTU 22:26
PROVIDERS: ADMIT Hospitalist; ATTEND Hospitalist
PROC: 5A1D70Z Performance of Urinary Filtration, Intermittent, Less than 6 Hours Per Day (ICD-10-PCS; principal; 2023-05-21)
DX: A41.9 Sepsis, unspecified organism (principal); J96.01 Acute respiratory failure with hypoxia; I50.21 Acute systolic (congestive) heart failure; I12.0 Hypertensive chronic kidney disease with stage 5 chronic kidney disease or end stage renal disease; N18.6 End stage renal disease; J15.9 Unspecified bacterial pneumonia; J81.1 Chronic pulmonary edema; E87.5 Hyperkalemia; Z20.822 Contact with and (suspected) exposure to COVID-19; E11.22 Type 2 diabetes mellitus with diabetic chronic kidney disease; Z99.2 Dependence on renal dialysis; Z79.4 Long term (current) use of insulin; Z79.899 Other long term (current) drug therapy
CPT/HCPCS: 36415; 71045; 80048; 80053; 80076; 81001; 82550; 83605; 83880; 84484; 85025; 85610; 85730; 87040; 87086; 93005; 94640; 96365; 96368; 96372; 96375; 99291; J0456; J0610; J0692; J1644; J1815; J1940; J7613

== ENCOUNTER 2023-07-03 06:20 | Inpatient (IN) | payer OTHER ==
[~2023-07-03] VITALS: Ht 182.9 cm; Wt 80.1 kg
[2023-07-03] VITALS (12 sets, daily range): BP systolic 142–231; BP diastolic 61–105; PULSE 57–82; RESP 15–40; TEMP 97–98.6; O2SAT 86–100
[~2023-07-03 06:20] MED LIST changes: +ACET-10509 PO; +ATOR40TA PO; +INSU100S22 SUBQ; +METO50TE2 PO; +SEVE800T6 PO
[2023-07-03] MEDS: MORPHINE SULFATE 4 MG/ML SYR IVP ONE (07:06)
[2023-07-03] MEDS: ONDANSETRON 4 MG/2 ML VIAL IVP ONE (07:06)
[2023-07-03] MEDS: hydrALAZINE 20 MG/ML VIAL IVP ONE ×2 (07:07→10:06)
[2023-07-03 07:23] LABS: BASOPHILS # (AUTO) 0.1 K/uL (0.00-0.22); EOSINOPHILS # (AUTO) 0.1 K/uL (0-0.4); EOSINOPHILS % (AUTO) 0.6 % (0.0-4.0); HEMATOCRIT 27.2 % (36-52); LYMPHOCYTES # (AUTO) 0.7 K/uL (2.0-11.5); MEAN CORPUSCULAR HEMOGLOBIN 30 pg (27-31); MEAN CORPUSCULAR HGB CONC 33 g/dL (33-37); MEAN CORPUSCULAR VOLUME 91.7 fL (80-94); MONOCYTES # (AUTO) 0.6 K/uL (0.8-1.0); MONOCYTES % (AUTO) 7.2 % (1.7-9.3); NEUTROPHILS # (AUTO) 7.5 K/uL (1.8-7.7); NEUTROPHILS % (AUTO) 83.2 % (42.2-75.2); PLATELET COUNT (AUTO) 219 K/uL (140-450); RED BLOOD CELL COUNT(AUTO) 2.96 MIL/uL (4.20-6.10); RED CELL DISTRIBUTION WIDTH 18.1 % (11.6-13.7); WHITE BLOOD COUNT (AUTO) 9.1 K/uL (4.8-10.8)
[2023-07-03 07:38] LABS: ANION GAP 15.1 (8-16); CALCIUM 8.8 mg/dL (8.5-10.1); CARBON DIOXIDE 29.2 mmol/L (21-32); POTASSIUM 5.3 mmol/L (3.5-5.1)
[2023-07-03 07:41] LABS: CREATININE 8.5 mg/dL (0.6-1.3)
[2023-07-03 07:49] LABS: ALANINE AMINOTRANSFERASE 199 U/L (12-78); ALBUMIN 3.3 g/dL (3.4-5.0); ALKALINE PHOSPHATASE 128 U/L (50-136); ASPARTATE AMINOTRANSFERASE 151 U/L (15-37); BILIRUBIN,DIRECT 0.2 mg/dL (0.0-0.3); TOTAL PROTEIN, SERUM 6.4 g/dL (6.4-8.2)
[2023-07-03 07:56] LABS: INR 1.2 (0.8-1.2); PARTIAL THROMBOPLASTIN TIME 28.7 secs (22-35.6); PROTHROMBIN TIME 12.5 secs (10.8-13.4)
[2023-07-03 08:05] LABS: AMYLASE 34 U/L (25-115); LIPASE 17 U/L (16-77)
[2023-07-03] MEDS: FUROSEMIDE 100 MG/10 ML VIAL IVP ONE (10:07)
[2023-07-03] MEDS ORDERED: MAG SULF 2000 MG/WATER PREMIX 50 ML IV PRN (11:05)
[2023-07-03] MEDS ORDERED: MAGNESIUM OXIDE 400 MG TAB PO PRN (11:05)
[2023-07-03] MEDS ORDERED: MORPHINE SULFATE 2 MG/ML SYR IVP PRN (11:05)
[2023-07-03] MEDS ORDERED: ACETAMINOPHEN 325 MG TAB PO PRN (11:05)
[2023-07-03] MEDS ORDERED: HYDROcodone/APAP 5/325 MG 1 TAB TAB PO PRN (11:05)
[2023-07-03] MEDS ORDERED: BENA20TA88 PO (11:13)
[2023-07-03] MEDS ORDERED: FURO80TA6 PO (11:13)
[2023-07-03] MEDS ORDERED: CLOP75TA55 PO (11:13)
[2023-07-03] MEDS ORDERED: BENA40TA PO (11:13)
[2023-07-03] MEDS ORDERED: CLON0.2T15 PO (11:13)
[2023-07-03] MEDS ORDERED: ASPI-1856 PO (11:13)
[2023-07-03] MEDS ORDERED: ATOR40TA40 PO (11:13)
[2023-07-03] MEDS ORDERED: NEP PO (11:13)
[2023-07-03] MEDS ORDERED: NIFE60TA22 PO (11:13)
[2023-07-03] MEDS ORDERED: METO50TE63 PO (11:13)
[2023-07-03] MEDS ORDERED: PANT20EC18 PO (11:13)
[2023-07-03] MEDS ORDERED: MULT-574 PO (11:13)
[2023-07-03] MEDS ORDERED: VALS80TA PO (11:13)
[2023-07-03] MEDS ORDERED: NIFE30TA17 PO (11:13)
[2023-07-03 12:50] LABS: FLU A ANTIGEN negative (NEGATIVE); FLU B ANTIGEN negative (NEGATIVE)
[2023-07-03] MEDS: hydrALAZINE 20 MG/ML VIAL IVP PRN (13:25)
[2023-07-03] MEDS: ISOSORBIDE DINITRATE 20 MG TAB PO SCH (14:20)
[2023-07-03] MEDS: METOPROLOL 50 MG TAB PO SCH (14:20)
[2023-07-03] MEDS: hydrALAZINE 25 MG TAB PO SCH (16:51)
[2023-07-03] MEDS: EPOETIN ALFA-EPBX 10,000 UNITS/ML VIAL IV SCH (16:51)
[2023-07-03] MEDS: NIFEdipine 60 MG TABER PO SCH (18:06)
[2023-07-03] MEDS ORDERED: DEXTROSE 50% 50 ML SYR IVP PRN (18:15)
[2023-07-03] MEDS: CLONIDINE HYDROCHLORIDE 0.1 MG TAB PO SCH (20:30)
[2023-07-03] MEDS: BENAZEPRIL 20 MG TAB PO SCH (20:30)
[2023-07-03] MEDS: ATORVASTATIN 20 MG TAB PO SCH (20:31)
[2023-07-03] MEDS: BLOOD GLUCOSE MONITORING 1 DEV DEV FS SCH (20:38)
[2023-07-03] MEDS ORDERED: CLONIDINE HYDROCHLORIDE 0.1 MG TAB PO SCH (21:00)
[2023-07-04] VITALS (17 sets, daily range): BP systolic 110–163; BP diastolic 47–72; PULSE 51–66; RESP 13–28; TEMP 97.2–98.6; O2SAT 93–100
[2023-07-04 05:29] LABS: ALBUMIN 2.7 g/dL (3.4-5.0); ANION GAP 10.4 (8-16); CALCIUM 8.5 mg/dL (8.5-10.1); CARBON DIOXIDE 30.6 mmol/L (21-32); MAGNESIUM 2.4 mg/dL (1.8-2.4); TOTAL BILIRUBIN 0.7 mg/dL (0.0-1.0); TOTAL PROTEIN, SERUM 5.6 g/dL (6.4-8.2)
[2023-07-04 05:32] LABS: BASOPHILS # (AUTO) 0.1 K/uL (0.00-0.22); BASOPHILS % (AUTO) 1.7 % (0.0-2.0); EOSINOPHILS # (AUTO) 0.5 K/uL (0-0.4); EOSINOPHILS % (AUTO) 6.4 % (0.0-4.0); HEMATOCRIT 26.6 % (36-52); HEMOGLOBIN 8.9 g/dL (12.0-18.0); LYMPHOCYTES % (AUTO) 14.3 % (20.5-51.1); MEAN CORPUSCULAR HEMOGLOBIN 30 pg (27-31); MEAN CORPUSCULAR HGB CONC 33 g/dL (33-37); MEAN CORPUSCULAR VOLUME 90.8 fL (80-94); MONOCYTES # (AUTO) 0.6 K/uL (0.8-1.0); MONOCYTES % (AUTO) 8.9 % (1.7-9.3); NEUTROPHILS # (AUTO) 4.9 K/uL (1.8-7.7); NEUTROPHILS % (AUTO) 68.7 % (42.2-75.2); PLATELET COUNT (AUTO) 241 K/uL (140-450); RED BLOOD CELL COUNT(AUTO) 2.93 MIL/uL (4.20-6.10); RED CELL DISTRIBUTION WIDTH 17.6 % (11.6-13.7); WHITE BLOOD COUNT (AUTO) 7.1 K/uL (4.8-10.8)
[2023-07-04 05:46] LABS: CREATININE 7.2 mg/dL (0.6-1.3)
[2023-07-04] MEDS: MEDS-TO-BEDS MC SCH (08:36)
[2023-07-04] MEDS: NIFEdipine 60 MG TABER PO SCH (08:58)
[2023-07-04] MEDS: PANTOPRAZOLE 40 MG TABEC PO SCH (08:59)
[2023-07-04] MEDS: FUROSEMIDE 40 MG TAB PO SCH (08:59)
[2023-07-04] MEDS: ECOTRIN 81 MG TABEC PO SCH (08:59)
[2023-07-04] MEDS ORDERED: BENAZEPRIL 20 MG TAB PO SCH (09:00)
[2023-07-04] MEDS ORDERED: METOPROLOL SUCCINATE 50 MG TABER PO SCH ×2 (09:00)
[2023-07-04] MEDS ORDERED: VALSARTAN 80 MG TAB PO SCH (09:00)
[2023-07-04] MEDS: CLOPIDOGREL 75 MG TAB PO SCH (09:01)
[2023-07-04 12:07] LABS: HEPATITIS A ANTIBODY IGM Negative (Negative); HEPATITIS B CORE AB TOTAL Negative (Negative); HEPATITIS B CORE, IGM Negative (Negative); HEPATITIS B SURFACE ANTIBODY Reactive (.); HEPATITIS B SURFACE ANTIGEN Negative (Negative); HEPATITIS C VIRUS ANTIBODY Non Reactive (Non Reactive)
[2023-07-04] MEDS: INSULIN LISPRO SLIDING SCALE 100 UNITS/ML VIAL SUBQ PRN (12:18)
[2023-07-04 14:04] LABS: HEPATITIS A ANTIBODY TOTAL Positive (Negative)
[2023-07-05] VITALS (7 sets, daily range): BP systolic 99–166; BP diastolic 34–66; PULSE 58–77; RESP 17–22; TEMP 97.7–98.4; O2SAT 94–99
[2023-07-05 06:02] LABS: BASOPHILS # (AUTO) 0.1 K/uL (0.00-0.22); BASOPHILS % (AUTO) 1.2 % (0.0-2.0); EOSINOPHILS # (AUTO) 0.5 K/uL (0-0.4); EOSINOPHILS % (AUTO) 8.4 % (0.0-4.0); LYMPHOCYTES # (AUTO) 0.9 K/uL (2.0-11.5); LYMPHOCYTES % (AUTO) 15.1 % (20.5-51.1); MEAN CORPUSCULAR HEMOGLOBIN 30 pg (27-31); MEAN CORPUSCULAR HGB CONC 33 g/dL (33-37); MEAN CORPUSCULAR VOLUME 90.6 fL (80-94); MONOCYTES # (AUTO) 0.7 K/uL (0.8-1.0); MONOCYTES % (AUTO) 11.1 % (1.7-9.3); NEUTROPHILS % (AUTO) 64.2 % (42.2-75.2); PLATELET COUNT (AUTO) 268 K/uL (140-450); RED BLOOD CELL COUNT(AUTO) 2.98 MIL/uL (4.20-6.10); RED CELL DISTRIBUTION WIDTH 17.3 % (11.6-13.7); WHITE BLOOD COUNT (AUTO) 6.2 K/uL (4.8-10.8)
[2023-07-05 06:44] LABS: ALBUMIN 2.6 g/dL (3.4-5.0); ANION GAP 8.7 (8-16); CARBON DIOXIDE 31.2 mmol/L (21-32); POTASSIUM 3.9 mmol/L (3.5-5.1); TOTAL BILIRUBIN 0.5 mg/dL (0.0-1.0); TOTAL PROTEIN, SERUM 5.4 g/dL (6.4-8.2)
[2023-07-05 08:12] LABS: CREATININE 5.9 mg/dL (0.6-1.3)
[2023-07-05] MEDS ORDERED: LON10 PO (09:21)
[2023-07-05] MEDS ORDERED: ISOS20TA13 PO (09:21)
== END 2023-07-05 15:25 | disposition home or self-care (01) | DRG 137 ==
LOC: MED 06:20 → MMU 11:05 → MIC 11:33 → MMU 07-04 21:10
PROVIDERS: ADMIT Internal Medicine; ATTEND Internal Medicine
PROC: 5A0935A Assistance with Respiratory Ventilation, Less than 24 Consecutive Hours, High Flow/Velocity Cannula (ICD-10-PCS; principal; 2023-07-03)
PROC: 5A1D70Z Performance of Urinary Filtration, Intermittent, Less than 6 Hours Per Day (ICD-10-PCS; 2023-07-03)
PROC: 5A0935A Assistance with Respiratory Ventilation, Less than 24 Consecutive Hours, High Flow/Velocity Cannula (ICD-10-PCS; 2023-07-04)
PROC: 5A1D70Z Performance of Urinary Filtration, Intermittent, Less than 6 Hours Per Day (ICD-10-PCS; 2023-07-04)
DX: J15.69 Pneumonia due to other Gram-negative bacteria (principal); J96.01 Acute respiratory failure with hypoxia; E44.0 Moderate protein-calorie malnutrition; I12.0 Hypertensive chronic kidney disease with stage 5 chronic kidney disease or end stage renal disease; J90 Pleural effusion, not elsewhere classified; E11.22 Type 2 diabetes mellitus with diabetic chronic kidney disease; D64.9 Anemia, unspecified; J15.9 Unspecified bacterial pneumonia; J81.1 Chronic pulmonary edema; N18.6 End stage renal disease; A08.4 Viral intestinal infection, unspecified; I16.0 Hypertensive urgency; Z20.822 Contact with and (suspected) exposure to COVID-19; Z99.2 Dependence on renal dialysis; Z79.899 Other long term (current) drug therapy; Z79.82 Long term (current) use of aspirin; Z79.4 Long term (current) use of insulin; Z68.23 Body mass index [BMI] 23.0-23.9, adult
CPT/HCPCS: 36415; 71045; 76705; 80048; 80053; 80076; 82150; 82948; 83690; 83735; 83880; 84484; 85025; 85610; 85730; 86704; 86706; 86708; 86709; 86803; 87081; 87340; 90935; 93005; 96374; 96375; 96376; 99291; J0360; J1815; J1940; J2270; J2405; Q0092; Q5106

== ENCOUNTER 2023-09-21 16:54 | Emergency (ER) | payer OTHER ==
[~2023-09-21] VITALS: Ht 185.4 cm; Wt 88.0 kg
[~2023-09-21 16:54] MED LIST changes: +ASPI-1856 PO; -ATOR40TA PO; +ATOR40TA40 PO; +BENA20TA88 PO; -CLON-1170 PO; +CLON0.2T15 PO; +CLOP75TA55 PO; +FURO80TA6 PO; +ISOS20TA13 PO; +LON10 PO; -METO50TE2 PO; +METO50TE63 PO; +MULT-574 PO; +NEP PO; -NIFE30TA36 PO; +NIFE60TA22 PO; +PANT20EC18 PO; -PANT40EC PO; -VALS80TA2 PO
[2023-09-21 17:22] VITALS: BP 144/51; PULSE 75; RESP 16; TEMP 99.2; O2SAT 96
== END 2023-09-21 18:45 | disposition left against medical advice (07) ==
LOC: MED 16:54
DX: R10.9 Unspecified abdominal pain (principal); H53.8 Other visual disturbances; R51.9 Headache, unspecified; Z53.21 Procedure and treatment not carried out due to patient leaving prior to being seen by health care provider
CPT/HCPCS: 82948

== ENCOUNTER 2023-11-22 16:55 | Emergency (ER) | payer OTHER ==
[~2023-11-22] VITALS: Ht 167.6 cm; Wt 81.6 kg
[~2023-11-22 16:55] MED LIST changes: -ACET-10509 PO; +ACET500T99 PO
[2023-11-22 17:05] VITALS: BP 251/100; PULSE 65; RESP 16; TEMP 98; O2SAT 98
[2023-11-22 17:32] VITALS: O2SAT 95
[2023-11-22 17:38] LABS: BASOPHILS # (AUTO) 0.1 K/uL (0.00-0.22); BASOPHILS % (AUTO) 1.3 % (0.0-2.0); EOSINOPHILS # (AUTO) 0.3 K/uL (0-0.4); EOSINOPHILS % (AUTO) 4.9 % (0.0-4.0); HEMATOCRIT 32.5 % (36-52); HEMOGLOBIN 10.7 g/dL (12.0-18.0); LYMPHOCYTES # (AUTO) 1.4 K/uL (2.0-11.5); LYMPHOCYTES % (AUTO) 22.3 % (20.5-51.1); MEAN CORPUSCULAR HEMOGLOBIN 28 pg (27-31); MEAN CORPUSCULAR HGB CONC 33 g/dL (33-37); MEAN CORPUSCULAR VOLUME 85.3 fL (80-94); MONOCYTES # (AUTO) 0.8 K/uL (0.8-1.0); MONOCYTES % (AUTO) 12.8 % (1.7-9.3); NEUTROPHILS # (AUTO) 3.7 K/uL (1.8-7.7); NEUTROPHILS % (AUTO) 58.7 % (42.2-75.2); PLATELET COUNT (AUTO) 261 K/uL (140-450); RED BLOOD CELL COUNT(AUTO) 3.81 MIL/uL (4.20-6.10); RED CELL DISTRIBUTION WIDTH 14.4 % (11.6-13.7); WHITE BLOOD COUNT (AUTO) 6.3 K/uL (4.8-10.8)
[2023-11-22 17:43] LABS: ANION GAP 11.2 (8-16); CALCIUM 9.6 mg/dL (8.5-10.1); POTASSIUM 4.2 mmol/L (3.5-5.1)
[2023-11-22 17:47] LABS: CREATININE 6.5 mg/dL (0.6-1.3)
[2023-11-22] MEDS: ENALAPRILAT 2.5 MG/2 ML VIAL IVP ONE ×2 (17:47→18:16)
[2023-11-22 18:54] VITALS: BP 255/105; PULSE 68; RESP 15; O2SAT 95
== END 2023-11-22 18:54 | disposition home or self-care (01) ==
LOC: MED 16:55
DX: I12.0 Hypertensive chronic kidney disease with stage 5 chronic kidney disease or end stage renal disease (principal); E11.22 Type 2 diabetes mellitus with diabetic chronic kidney disease; N18.6 End stage renal disease; Z99.2 Dependence on renal dialysis; Z79.899 Other long term (current) drug therapy
CPT/HCPCS: 36415; 80048; 85025; 96374; 99283; J3490